=== PATIENT | female | born 1985 | race Caucasian/White ===

== ENCOUNTER → 2019-02-28 | Outpatient (CLI) | payer BC ==
[~2019-02-28] MED LIST: PANT40TA2 PO; SUCR1TAB36 PO
--- NOTE | 2019-02-28 15:27 | Diagnostic Imaging Report ---
PROCEDURE: US Non-OB pelvis comp/trans. TECHNIQUE: Multiple realtime grayscale images were obtained of the pelvis in various projections endovaginally. Transabdominal imaging was also performed. INDICATION: Chronic pelvic pain. FINDINGS: The previous pelvic ultrasound exam performed on 10/10/2018 noted a small amount of fluid within the endometrial canal. On this exam, that fluid has diminished. There still appears to be some fluid present, however. The endometrium itself is not significantly thickened measuring 7 mm. There is no evidence for a gestational sac. There is no solid mass involving the uterus to suggest a fibroid, and the uterus is not enlarged measuring 7.5 x 4.3 x 3.7 cm. The right ovary was identified. There is a 1.3 x 1.0 x 1.4 cm benign-appearing cyst associated with the right ovary. There was a similar-sized cyst on the prior exam. There was another cyst measuring approximately 1 cm involving the right ovary on the prior study. That cyst has resolved. As on the prior exam, the left ovary could not be visualized. There is no pelvic mass or free fluid collection evident. IMPRESSION: 1. The small amount of fluid within the endometrial canal seen on the previous exam has diminished. This finding is nonspecific. 2. One of the cysts associated with the right ovary noted previously has resolved. The other cyst is essentially no different. 3. The left ovary could not be visualized. Dictated by: Dictated on workstation # [id number]
== END ==
LOC: RAD 14:18
PROVIDERS: ATTEND Obstetrics & Gynecology
DX: N83.201 Unspecified ovarian cyst, right side (principal)
CPT/HCPCS: 76830; 76856

== ENCOUNTER 2019-03-20 05:35 | Outpatient (CLI) | payer BC ==
[~2019-03-20] VITALS: Ht 165.1 cm; Wt 86.2 kg
== END 2019-03-20 10:11 | disposition home or self-care (01) ==
LOC: PREOP 05:35
PROVIDERS: ATTEND Obstetrics & Gynecology
DX: Z01.818 Encounter for other preprocedural examination (principal)

== ENCOUNTER 2019-03-30 06:34 | Day surgery (SDC) | payer BC ==
[~2019-03-30] VITALS: Ht 165.1 cm; Wt 86.2 kg
[2019-03-30] VITALS (12 sets, daily range): BP systolic 95–115; BP diastolic 54–73
[2019-03-30] MEDS ORDERED: BUPIVACAINE 0.25% 30 ML (SENSORCAINE) VIAL ONE (07:04)
[2019-03-30] MEDS ORDERED: LIDOCAINE PF 2% 5 ML (XYLOCAINE) VIAL ONE (07:11)
[2019-03-30] MEDS ORDERED: GLYCOPYRROLATE 0.2 MG/ML (ROBINUL) 2 ML VIAL ONE (07:11)
[2019-03-30] MEDS ORDERED: proPOfol 200 MG/20 ML (DIPRIVAN) VIAL IV ONE (07:11)
[2019-03-30] MEDS ORDERED: NEOSTIGMINE 3 MG/3 ML VIAL ONE (07:11)
[2019-03-30] MEDS ORDERED: DEXAMETHASONE 10 MG/ML (DECADRON) 1 ML VIAL ONE (07:11)
[2019-03-30] MEDS ORDERED: ROCURONIUM 10 MG/ML 5 ML SYRINGE IV ONE (07:11)
[2019-03-30] MEDS ORDERED: MIDAZOLAM 2 MG/2 ML (VERSED) VIAL ONE (07:11)
[2019-03-30] MEDS ORDERED: ONDANSETRON 4 MG/2 ML (SDV) Z0FRAN ONE (07:11)
[2019-03-30] MEDS ORDERED: SEVOFLURANE (ULTANE) 15 ML INHAL SOLN ONE (07:11)
[2019-03-30] MEDS ORDERED: fentaNYL INJECTION 100 MCG/2 ML AMP ONE (07:11)
[2019-03-30 07:22] LABS: BASOPHILS # (AUTO) 0.1 10^3/uL (0.0-0.1); BASOPHILS % (AUTO) 1 % (0-10); EOSINOPHILS # (AUTO) 0.1 10^3/uL (0.0-0.3); EOSINOPHILS % (AUTO) 1 % (0-10); HEMATOCRIT 41 % (35-52); HEMOGLOBIN 13.3 G/DL (11.5-16.0); LYMPHOCYTES % (AUTO) 21 % (12-44); MEAN CORPUSCULAR HEMOGLOBIN 29 PG (25-34); MEAN CORPUSCULAR HGB CONC 33 G/DL (32-36); MEAN CORPUSCULAR VOLUME 88 FL (80-99); MEAN PLATELET VOLUME 11.1 FL (7.4-10.4); MONOCYTES # (AUTO) 0.6 X 10^3 (0.0-1.0); MONOCYTES % (AUTO) 6 % (0-12); NEUTROPHILS # (AUTO) 6.6 X 10^3 (1.8-7.8); NEUTROPHILS % (AUTO) 71 % (42-75); PLATELET COUNT 208 10^3/uL (130-400); RED CELL DISTRIBUTION WIDTH 13.4 % (10.0-14.5); WHITE BLOOD COUNT 9.3 10^3/uL (4.3-11.0)
[2019-03-30] MEDS: LACTATED RINGERS 1,000 ML IV PRN ×3 (07:24→09:35)
[2019-03-30] MEDS ORDERED: D5 LR IV SOLUTION 1,000 ML IV SCH (08:09)
--- NOTE | 2019-03-30 08:09 | Progress Note-Pre Operative ---
Pre-Operative Progress Note H&P Reviewed The H&P was reviewed, patient examined and no changes noted. Date Seen by Provider: Mar 30, 2019 Time Seen by Provider: 08:10 Date H&P Reviewed: Mar 30, 2019 Time H&P Reviewed: 08:10 Pre-Operative Diagnosis: ZAC PAPPAS DO Mar 30, 2019 08:09
[2019-03-30] MEDS ORDERED: HYDROcodone/APAP 5 MG/325 MG (LORTAB) TAB PO PRN (08:15)
[2019-03-30] MEDS ORDERED: KETOROLAC 30 MG/ML VIAL IVP ONE (08:15)
[2019-03-30] MEDS ORDERED: ONDANSETRON 4 MG/2 ML (SDV) Z0FRAN IVP PRN ×2 (08:15→10:00)
--- NOTE | 2019-03-30 08:17 | Discharge Inst-Women's Service ---
Discharge Inst-Women's Serv Depart Medication/Instructions New, Converted or Re-Newed RX: RX on Chart Consults/Follow Up Additional Follow Up: Yes Orders/Referrals Dr. Lilly in 2 weeks Activity Activity: Activity as Tolerated NO SMOKING: NO SMOKING Nothing Inside Vagina: No Douching, No Black, No Tampons Diet Discharge Diet: No Restrictions Symptoms to Report to : Bleeding Excessive, Pain Increased, Fever Over 101 Degrees F, Vaginal Bleeding Increase, Questions/Concerns For Any Problems or Questions: Contact Your Physician Skin/Wound Care Infection Signs and Symptoms: Increased Redness, Foul Odor of Wound, Increased Drainage, Skin Itchy or Has a Rash, Increased Swelling, Temperature Above 101 F Operative Area Clean and Dry: Keep Incision Clean/Dry Stitches/Umberto/Dermabond: Dermabond, Care of Stitches Bathing Instructions: ZAC Lara DO Mar 30, 2019 08:17
[2019-03-30] MEDS ORDERED: DOCU-143 PO (08:19)
[2019-03-30] MEDS ORDERED: IBUP-1773 PO (08:19)
[2019-03-30] MEDS ORDERED: ACHD5005 PO (08:19)
[2019-03-30] MEDS ORDERED: HYDROmorphone 2 MG/ML VIAL (DILAUDID) ONE ×2 (09:23→09:54)
[2019-03-30] MEDS ORDERED: KETOROLAC 30 MG/ML VIAL ONE (09:31)
[2019-03-30] MEDS ORDERED: HYDROmorphone 2 MG/ML VIAL (DILAUDID) IV ONE (10:00)
--- NOTE | 2019-03-30 10:40 | Anesthesia-General Post-Op ---
General Patient Condition Mental Status/LOC: Same as Preop Cardiovascular: Satisfactory Nausea/Vomiting: Absent Respiratory: Satisfactory Pain: Controlled Complications: Absent Post Op Complications Complications None Follow Up Care/Instructions Patient Instructions None needed. Anesthesia/Patient Condition Patient Condition Patient is doing well, no complaints, stable vital signs, no apparent adverse anesthesia problems. No complications reported per nursing. GI DIAS CRNA Mar 30, 2019 10:40
--- NOTE | 2019-03-30 16:43 | OPERATIVE REPORT ---
DATE OF SERVICE: 03/30/2019 PREOPERATIVE DIAGNOSIS: A 33-year-old female with chronic pelvic pain. POSTOPERATIVE DIAGNOSES: A 33-year-old female with chronic pelvic pain plus extensive adhesions of the anterior pelvic peritoneum and left adnexa. PROCEDURE: Laparoscopic extensive lysis of adhesions greater than 30 minutes. SURGEON: Troy Lilly DO ANESTHESIA: General endotracheal. ESTIMATED BLOOD LOSS: Minimal. URINE OUTPUT: 100 mL clear at the end of the procedure. FLUIDS: 1000 mL lactated Ringer's solution. FINDINGS: A grossly normal appearing uterus, right fallopian tube and ovary. Absence of the left fallopian tube and ovary grossly normal appearing external female genitalia, adhesions of the omentum in a curtain like fashion starting at the adnexa going into the anterior cul-de-sac and involving the vesicouterine peritoneum and going up the anterior abdominal wall. SPECIMENS SENT: None. INDICATIONS FOR PROCEDURE: This 33-year-old female who is a self-consultation in my office for ongoing issues of chronic pelvic pain, especially on the left side. She felt as though she had a left-sided ovarian cyst; however, the ovary was not seen on ultrasound and there is no cystic structure on ultrasound either. She did have a history of an emergency with a significant amount of bleeding in the past as well as having her tubes ligated at that procedure as well, but she was unaware of absence of her left ovary or fallopian tube with that being done in a prior date. We discussed proceeding with a laparoscopy for underlying causes as the ultrasound continued to be normal despite her ongoing issues with pelvic pain. Risks of the procedure were discussed with the patient in detail including risk of bleeding, infection, postoperative recovery timeframe, postoperative complications, risk from anesthesia and even . After all of her questions were answered, consent was obtained in the preoperative area with her family present and the patient was taken to the operating room. OPERATIVE REPORT IN DETAIL: Once in the operating room, general anesthesia was found to be adequate. She was placed in dorsal lithotomy position, prepped and draped in normal sterile fashion. A timeout was performed. A weighted speculum was inserted in the patient's vagina after a Tristan catheter was placed using sterile technique. A right angle retractor was used to visualize the cervix, which was grasped at the 12 o'clock position using a single tooth tenaculum. I then gently dilated the cervix using Demetria dilators. After the cervix, uterine cavity depth is sounded to be 7 cm. I then placed a Kronner uterine manipulator into the uterine cavity and deployed the balloon. I removed all the other instruments from the patient's vagina and performed a change of gloves and I turned my attention to the abdomen where infraumbilically I infiltrated this area using 0.25% Marcaine and make a 5 mm incision and directed the Veress needle through the incision until intraperitoneal placement was confirmed using a saline drop test. I then proceeded with insufflation using CO2 gas and opening pressure of 3 mmHg was noted. I proceeded to maximum pressure of 15 mmHg, at which point I removed the Veress needle and introduced a 5 mm blunt trocar. Once this was in place, I am able to confirm intraperitoneal placement using the laparoscope. There was a significant amount of obscurity of my view. Based on these adhesions of the omentum, which I ended up having to take down by placing a trocar in the right lower quadrant. This is a 5 mm trocar was placed under direct visualization of laparoscope. Once this trocar was then placed I am able to taken down with both blunt and sharp dissection. I followed this curtain adhesion down to the pelvis and had the patient was placed in steep Trendelenburg and took the adhesions down all the way to the left adnexa where I am able to confirm that there is no left tube or ovary and likely these adhesions were due to the previous surgery and the scarring from that surgery. There are some minor adhesions of the descending left sigmoid colon to the left adnexa, which were taken down as well, after which there was no active bleeding noted from any of my dissection planes. I copiously irrigated the pelvis using normal saline. I find no reason to do anything further at that point. A brief scan of the upper abdominal anatomy appears to be normal. I then had the patient taken out of steep Trendelenburg and released insufflation removing the right lower quadrant trocar. Under direct visualization of the laparoscope the infraumbilical trocar was left in place to release insufflation and to introduce 10 mL of 0.25% Marcaine. This trocars were then removed as well. The skin was reapproximated using Dermabond. The Kronner uterine manipulator and Tristan catheter was removed. The patient tolerated the procedure well and sent to recovery area in stable condition. Lap and sponge counts were correct at the end of the procedure. Instrument counts were correct as well. Job ID: [id number] DocumentID: [id number] Dictated Date: 03/30/2019 11:40:15 Hydrology Technician Date: 03/30/2019 16:43:01 Dictated By: DO MAHNAZ ACEVEDO
== END 2019-03-30 13:00 | disposition home or self-care (01) ==
LOC: SDC 06:34
PROVIDERS: ATTEND Obstetrics & Gynecology
DX: N99.4 Postprocedural pelvic peritoneal adhesions (principal); J45.909 Unspecified asthma, uncomplicated; F17.210 Nicotine dependence, cigarettes, uncomplicated; Z11.2 Encounter for screening for other bacterial diseases; Z88.0 Allergy status to penicillin; Z88.2 Allergy status to sulfonamides
CPT/HCPCS: 36415; 84703; 85025; 86850; 86900; 86901; 87081

== ENCOUNTER → 2019-12-12 | Outpatient (CLI) | payer BC ==
[~2019-12-12] MED LIST changes: +ACHD5005 PO; +DOCU-143 PO; +IBUP-1773 PO
--- NOTE | 2019-12-12 15:06 | Diagnostic Imaging Report ---
PROCEDURE: US Non-ob pelvis comp/trans. TECHNIQUE: Multiple realtime grayscale images were obtained of the pelvis in various projections endovaginally. Transabdominal imaging was also performed. INDICATION: Pelvic pain. Patient has had prior left oophorectomy in 2011. FINDINGS: The uterus is anteverted measuring 7.2 x 3.3 x 4.5 cm. The endometrium is thin at approximately 2 mm. There is some fluid within the endometrial canal near the fundus. No myometrial mass is seen. The left ovary is surgically absent. The right ovary measures 3.0 x 2.4 x 2.4 cm. The right ovary does contain small follicles. There is blood flow to the right ovary. No adnexal mass or free fluid is seen. IMPRESSION: Small amount of fluid in the endometrial canal. The study is otherwise unremarkable. Dictated by: Dictated on workstation # [id number]
== END ==
LOC: RAD 12:20
PROVIDERS: ATTEND Obstetrics & Gynecology
DX: N94.5 Secondary dysmenorrhea (principal); N94.12 Deep dyspareunia; Z90.721 Acquired absence of ovaries, unilateral
CPT/HCPCS: 76830; 76856

== ENCOUNTER → 2020-11-26 | Outpatient (CLI) | payer BC | LOC: CARD 08:44 | PROVIDERS: ATTEND Internal Medicine Cardiovascular Disease | DX: I34.0 Nonrheumatic mitral (valve) insufficiency (principal) | CPT/HCPCS: 93225; 93226; 93306; 93351 ==

== ENCOUNTER 2022-05-29 19:16 | Emergency (ER) | payer OTHER ==
[~2022-05-29] VITALS: Ht 163 cm; Wt 91.0 kg
[2022-05-29] MEDS ORDERED: TETANUS,DIPTH,PERTUSS P/F (BOOSTRIX) 0.5 ML VIAL IM ONE (20:45)
--- NOTE | 2022-05-29 20:51 | ED Upper Extremity ---
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 tdap not up to date. Onset: just prior to arrival Severity: moderate Pain/Injury Location: left thumb Method of Injury: direct blow Modifying Factors: Worse With Movement (MEGHAN TORRES APRN) Allergies and Home Medications Allergies Coded Allergies: Penicillins (Verified Allergy, Unknown, Anaphylaxis, 03/20/19) sulfamethoxazole (Verified Adverse Reaction, Intermediate, anaphylaxis, 06/19/16) trimethoprim (Verified Adverse Reaction, Intermediate, anaphylaxis, 06/19/16) Patient Home Medication List Home Medication List Reviewed: Yes (MEGHAN TORRES APRN) Docusate Sodium (Colace) 100 Mg Capsule, 100 MG PO BID Prescribed by: ZAC GOMEZ on 03/30/19818 Hydrocodone Bit/Acetaminophen (Lortab 5 Mg Tablet) 1 Tab Tab, 2 TAB PO Q6HR PRN for PAIN-MODERATE Prescribed by: ZAC GOMZE on 03/30/19818 Ibuprofen (Ibuprofen) 600 Mg Tablet, 600 MG PO Q6H Prescribed by: ZAC GOMEZ on 03/30/19818 Review of Systems Constitutional: see HPI EENTM: see HPI Respiratory: no symptoms reported Cardiovascular: no symptoms reported Genitourinary: no symptoms reported Musculoskeletal: see HPI Skin: no symptoms reported Psychiatric/Neurological: No Symptoms Reported (MEGHAN TORRES APRN) Past Ooomrwx-Ciebnd-Tvdues Hx Patient Social History Tobacco Use?: Yes Substance use?: No Alcohol Use?: No Pt feels they are or have been: No (MEGHAN TORRES APRN) Immunizations Up To Date First/Initial COVID19 Vaccinat: x2 (MEGHAN TORRES APRN) Seasonal Allergies Seasonal Allergies: No (MEGHAN TORRES APRN) Past Medical History Surgery/Hospitalization HX: x3, left knee Surgeries: Yes ( X 3, left knee scope) Section, Gallbladder, Tubal Ligation Respiratory: Yes (when younger) Asthma Cardiac: No Neurological: No 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 0.0oz. [id number]; 34.00 BMI Method:Stated General Appearance: WD/WN, no apparent distress HEENT: PERRL/EOMI, normal ENT inspection Neck: non-tender, full range of motion Respiratory: no respiratory distress, no accessory muscle use Shoulder: normal inspection, non-tender Elbow/Forearm: normal inspection, non-tender Wrist: Yes normal inspection, Yes non-tender Hand: Left, laceration (2cm laceration to proximal left thumb with active bleeding. normal sensation distally. ) Neurologic/Psychiatric: alert, normal mood/affect, oriented x 3 Skin: normal color, warm/dry (MEGHAN TORRES APRN) Procedures/Interventions Wound Location: Upper Extremities Wound Length (cm): 2 Wound's Depth, Shape: linear, sub Q Wound Explored: clean Irrigated w/ Saline (ccs): 20 Anesthesia: 1% Lidocaine Volume Anesthetic (ccs): 1 Suture: Prolene Suture Size: 5-0 Number of Sutures: 4 Layer Closure?: 1 (MEGHAN TORRES APRN) Progress/Results/Core Measures Results/Orders Blood Pressure Mean: 99 Departure Impression Primary Impression: Thumb laceration Disposition: 01 HOME, SELF-CARE Condition: Stable Departure-Patient Inst. Decision time for Depature: 20:50 (MEGHAN TORRES APRN) Referrals: [facility] (PCP) Primary Care Physician CAROLE JOLLY APRN (Family) Primary Care Physician Patient Instructions: Laceration Repair With Stitches (DC) Add. Discharge Instructions: 1. stitches out in 10 days. All discharge instructions reviewed with patient and/or family. Voiced unde rstanding. PHYSICIAN ATTESTATION NOTE: I was present in the ER while CHARGE ACCOUNTS AUDIT CLERK / PA saw the patient, but I was not involved in the care, exam, or management of the patient. (LAVERN SOLARES MD) MEGHAN TORRES APRN May 29, 2022 20:51 LAVERN SOLARES MD Jun 01, 2022 07:02
[2022-05-29 20:54] VITALS: BP 125/79
== END 2022-05-29 20:58 | disposition home or self-care (01) ==
LOC: EDUNIT# 19:16 → ER 19:26
DX: S61.012A Laceration without foreign body of left thumb without damage to nail, initial encounter (principal); Z23 Encounter for immunization; W26.0XXA Contact with knife, initial encounter; Y92.009 Unspecified place in unspecified non-institutional (private) residence as the place of occurrence of the external cause
CPT/HCPCS: 12001; 90715